=== PATIENT | male | born 1975 | race Caucasian/White ===

== ENCOUNTER 2022-10-10 19:21 | Inpatient (IN) | payer OTHER ==
[2022-10-10 20:44] VITALS: BMI 21.7
[2022-10-10] MEDS ORDERED: LORazepam 2 MG/ML SDV VIAL IM ONE (21:17)
[2022-10-10] MEDS ORDERED: MAGNESIUM HYDROX 2400MG/30ML ORAL SUSPENSION 30 ML CUP PO PRN (21:33)
[2022-10-10] MEDS ORDERED: hydrOXYzine PAMOATE 25 MG CAPSULE (FP) PO PRN (21:33)
[2022-10-10] MEDS ORDERED: MAG HYDROX/AL HYDROX/SIMETH 30 ML UNIT-DOSE CUP PO PRN (21:33)
[2022-10-10] MEDS ORDERED: IBUPROFEN 600 MG TABLET (FP) PO PRN (21:33)
[2022-10-10] MEDS ORDERED: ACETAMINOPHEN 325 MG TABLET (FP) PO PRN (21:33)
[2022-10-10] MEDS ORDERED: DICYCLOMINE HCL 10 MG CAPSULE PO PRN (21:33)
[2022-10-10] MEDS ORDERED: NALOXONE HCL (KLOXXADO) 8 MG SPRAY NS PRN (21:33)
[2022-10-10] MEDS ORDERED: NALOXONE HCL 0.4 MG/ML VIAL IM PRN (21:33)
[2022-10-10] MEDS ORDERED: BENZOCAINE/MENTHOL (CHLORASEPTIC ) LOZENGE MM PRN (21:33)
[2022-10-10] MEDS ORDERED: IBUPROFEN 400 MG TABLET (FP) PO PRN (21:33)
[2022-10-10] MEDS ORDERED: ONDANSETRON *ODT* 4 MG TABLET SL PRN (21:33)
[2022-10-10] MEDS ORDERED: BISMUTH SUBSALICYLATE 524 MG/30 ML PO PRN (21:33)
[2022-10-10] MEDS ORDERED: BENZONATATE 200 MG CAPSULE PO PRN (21:33)
[2022-10-10] MEDS ORDERED: LOPERAMIDE HCL 2 MG CAPSULE PO PRN (21:33)
[2022-10-10] MEDS ORDERED: guaiFENesin 600 MG TABLET.ER (FP) PO PRN (21:33)
[2022-10-10] MEDS ORDERED: POLYETHYLENE GLYCOL (HEALTHYLAX) 3350 17 GM PACKET PO PRN (21:33)
[2022-10-10] MEDS ORDERED: THIAMINE HCL 100 MG TABLET (FP) PO SCH (22:00)
[2022-10-10] MEDS ORDERED: MELATONIN 5 MG TABLETS PO SCH (22:00)
[2022-10-11] MEDS ORDERED: LORazepam 1 MG TABLET PO PRN (03:44)
[2022-10-11] MEDS: LORazepam 1 MG TABLET PO SCH ×3 (05:41→17:30)
[2022-10-11 09:48] VITALS: TEMP 97.5
[2022-10-11] MEDS ORDERED: PRENATAL VITAMINS W/ FOLIC ACID TABLET (FP) PO SCH (10:00)
[2022-10-11 11:00] LABS: HEMATOCRIT 37.5 % (35.4-49); HEMOGLOBIN 12.5 GM/dL (11.7-16.9); MCH 35.3 pg (25.7-33.7); MCHC 33.3 g/dl (32.0-35.9); MEAN CELL VOLUME 106.1 fl (80-96); MEAN PLT VOLUME 11.1 fl (7.5-11.1); RBC 3.53 M/mm3 (4.00-5.60); RDW 16.2 % (11.9-15.9); WHITE BLOOD COUNT 2.1 K/mm3 (4.0-10.0)
[2022-10-11 11:04] LABS: CHLORIDE 103 mmol/L (98-107); POTASSIUM 3.6 mmol/L (3.5-5.1); SODIUM 142 mmol/L (136-145)
[2022-10-11 11:08] LABS: ALBUMIN 3.6 g/dl (3.4-5.0); ANION GAP 10 MMOL/L (8-16); BLOOD UREA NITROGEN 11.6 mg/dL (7-18); CALCIUM 8.8 mg/dL (8.5-10.1); CO2 30 mmol/L (21-32)
[2022-10-11 11:09] LABS: GLUCOSE,RANDOM 92 mg/dL (74-106)
[2022-10-11 11:11] LABS: CREATININE 0.9 mg/dL (0.55-1.3); SGOT/AST 398 U/L (15-37); SGPT/ALT 217 U/L (13-61)
[2022-10-11 11:13] LABS: BILIRUBIN,TOTAL 3.3 mg/dL (0.2-1); TOT PROT 6.2 g/dl (6.4-8.2)
[2022-10-11 11:14] LABS: ALK PHOS 153 U/L (45-117)
[2022-10-11 11:29] LABS: PLATELET COUNT 24 10^3/uL (134-434)
[2022-10-11 13:49] VITALS: BP 131/90; PULSE 100; RESP 18
[2022-10-12] MEDS ORDERED: LORazepam 1 MG TABLET PO SCH (05:00)
[2022-10-13] MEDS ORDERED: LORazepam 0.5 MG TABLET PO PRN
[2022-10-13] MEDS ORDERED: LORazepam 0.5 MG TABLET PO SCH (05:00)
[2022-10-14] MEDS ORDERED: LORazepam 0.5 MG TABLET PO ONE (05:00)
== END 2022-10-11 23:23 | disposition short-term general hospital (02) | DRG 775 ==
LOC: YASAS 19:21 → Y3N 21:31
PROVIDERS: ADMIT Allergy & Immunology; ATTEND Surgery
PROC: HZ2ZZZZ Detoxification Services for Substance Abuse Treatment (ICD-10-PCS; principal; 2022-10-10)
DX: F10.230 Alcohol dependence with withdrawal, uncomplicated (principal); F12.20 Cannabis dependence, uncomplicated; D69.6 Thrombocytopenia, unspecified; Z86.69 Personal history of other diseases of the nervous system and sense organs; Z87.891 Personal history of nicotine dependence
CPT/HCPCS: 36415; 80053; 80307; 85027; 86780; 87635; 93005; 93010

== ENCOUNTER 2022-10-11 15:11 | Inpatient (IN) | payer OTHER ==
[2022-10-11 17:40] LABS: ACTIVATED PTT 30.8 SECONDS (25.2-36.5); INR 1.19 (0.83-1.09); PROTHROMBIN TIME (PATIENT) 13.8 SEC (9.7-13.0)
[2022-10-11] MEDS ORDERED: chlordiazePOXIDE HCL 25 MG CAPSULE PO ONE ×2 (18:10→18:18)
[2022-10-11] MEDS ORDERED: chlordiazePOXIDE HCL 25 MG CAPSULE ONE (18:14)
[2022-10-11] MEDS ORDERED: LORazepam 2 MG/ML SDV VIAL IVPUSH ONE (18:16)
[2022-10-11] MEDS ORDERED: FOLIC ACID 1 MG TABLET (FP) PO ONE (20:24)
[2022-10-11] MEDS ORDERED: FOLIC ACID 1 MG TABLET (FP) ONE (20:48)
[2022-10-11] MEDS ORDERED: THIAMINE HCL 100 MG TABLET (FP) ONE (20:48)
[2022-10-11] MEDS: THIAMINE HCL 100 MG TABLET (FP) PO SCH (21:05)
[2022-10-11] MEDS ORDERED: LORazepam 1 MG TABLET PO PRN (21:35)
[2022-10-11] MEDS ORDERED: MELATONIN 5 MG TABLETS PO ONE (23:28)
[2022-10-11] MEDS: LORazepam 1 MG TABLET PO SCH (23:30)
[2022-10-12 00:53] VITALS: BMI 21.5
[2022-10-12] MEDS: LORazepam 1 MG TABLET PO SCH ×4 (05:23→23:31)
[2022-10-12] MEDS: THIAMINE HCL 100 MG TABLET (FP) PO SCH (10:41)
[2022-10-12 11:30] LABS: HEMATOCRIT 39.3 % (35.4-49); HEMOGLOBIN 13.3 GM/dL (11.7-16.9); MCH 35.5 pg (25.7-33.7); MCHC 33.9 g/dl (32.0-35.9); MEAN CELL VOLUME 104.4 fl (80-96); MEAN PLT VOLUME 10.1 fl (7.5-11.1); RBC 3.76 M/mm3 (4.00-5.60); RDW 15.8 % (11.9-15.9); WHITE BLOOD COUNT 2.4 K/mm3 (4.0-10.0)
[2022-10-12 11:52] LABS: POTASSIUM 3.6 mmol/L (3.5-5.1)
[2022-10-12 11:54] LABS: CALCIUM 9.3 mg/dL (8.5-10.1)
[2022-10-12 11:55] LABS: ALBUMIN 3.7 g/dl (3.4-5.0); BLOOD UREA NITROGEN 6.7 mg/dL (7-18); MAGNESIUM 2.1 mg/dL (1.8-2.4)
[2022-10-12 11:57] LABS: PLATELET COUNT 23 10^3/uL (134-434)
[2022-10-12 11:58] LABS: CREATININE 0.9 mg/dL (0.55-1.3); PHOSPHOROUS 3.6 mg/dL (2.5-4.9)
[2022-10-12 12:00] LABS: BILIRUBIN,TOTAL 2.6 mg/dL (0.2-1); TOT PROT 6.8 g/dl (6.4-8.2)
[2022-10-12 13:01] LABS: HIV INTERPRETATION NEGATIVE (NEGATIVE)
[2022-10-13] MEDS: LORazepam 1 MG TABLET PO SCH ×2 (05:25→11:01)
[2022-10-13 07:00] VITALS: RESP 20
[2022-10-13] MEDS: THIAMINE HCL 100 MG TABLET (FP) PO SCH (09:27)
[2022-10-13 11:59] LABS: BASO % 0.4 % (0-2.0); EOS % 0.6 % (0-4.5); LYMPH % 29.4 % (8-40); MCH 35.8 pg (25.7-33.7); MCHC 34.3 g/dl (32.0-35.9); MEAN CELL VOLUME 104.5 fl (80-96); MEAN PLT VOLUME 10.2 fl (7.5-11.1); MONO % 13.7 % (3.8-10.2); NEUT % 55.9 % (42.8-82.8); RBC 3.63 M/mm3 (4.00-5.60); RDW 15.6 % (11.9-15.9); WHITE BLOOD COUNT 3.2 K/mm3 (4.0-10.0)
[2022-10-13 12:05] LABS: PLATELET COUNT 28 10^3/uL (134-434)
[2022-10-13 12:18] LABS: POTASSIUM 3.9 mmol/L (3.5-5.1)
[2022-10-13 12:19] LABS: CALCIUM 9.2 mg/dL (8.5-10.1)
[2022-10-13 12:20] LABS: ALBUMIN 3.7 g/dl (3.4-5.0); MAGNESIUM 1.9 mg/dL (1.8-2.4)
[2022-10-13 12:23] LABS: PHOSPHOROUS 4.2 mg/dL (2.5-4.9)
[2022-10-13 12:25] LABS: TOT PROT 6.6 g/dl (6.4-8.2)
[2022-10-13 12:31] VITALS: BP 116/78; PULSE 75; TEMP 97.8
[2022-10-14] MEDS ORDERED: LORazepam 0.5 MG TABLET PO PRN
[2022-10-14] MEDS ORDERED: LORazepam 0.5 MG TABLET PO SCH (05:00)
[2022-10-15] MEDS ORDERED: LORazepam 0.5 MG TABLET PO ONE (05:00)
== END 2022-10-13 13:23 | disposition other institution (70) | DRG 775 ==
LOC: JER 15:11 → JERBED 20:20 → J5S 22:49
PROVIDERS: ADMIT Internal Medicine; ATTEND Internal Medicine
DX: F10.230 Alcohol dependence with withdrawal, uncomplicated (principal); D69.6 Thrombocytopenia, unspecified; F41.9 Anxiety disorder, unspecified; F32.A Depression, unspecified; R74.01 Elevation of levels of liver transaminase levels
CPT/HCPCS: 36415; 74176-TC; 76705-TC; 80053; 82525; 82607; 82746; 83690; 83735; 84100; 85025; 85027; 85610; 85730; 86704; 86803; 86850; 86900; 86901; 87350; 87389; 87517; 87799; 99285-25